=== PATIENT | male | born 1985 | race Hispanic/Latino ===

== ENCOUNTER 2018-05-21 10:00 | Emergency (ER) | payer OTHER ==
[2018-05-21] MEDS ORDERED: ISOVUE-370 76%-LOCM 1 ML ONE (10:31)
[2018-05-21 11:06] LABS: #Basophils 0.1 thou/uL (0.0-0.2); #Eosinphils 0.5 thou/uL (0.0-0.7); #Lymphocytes 1.7 thou/uL (1.20-3.40); #Monocytes 0.4 thou/uL (0.11-0.59); #Neutrophils 5.2 thou/uL (1.40-6.50); %Basophils 0.8 % (0.0-1.0); %Eosinophils 5.9 % (0.0-10.0); %Lymphocytes 21.4 % (21.0-51.0); %Monocytes 5.1 % (0.0-10.0); %Neutrophils 66.8 % (42.0-75.0); Hemoglobin 17.4 g/dL (14.0-18.0); Mean Corpuscular HGB CONC 33.4 g/dL (32.0-36.0); Mean Corpuscular Hemoglobin 29.5 pg (27.0-31.0); Mean Corpuscular Volume 88.3 fL (78.0-98.0); Mean Platelet Volume 6.6 fL (7.4-10.4); Platelet Count 208 thou/uL (130-400); RBC Distribution Width 12.2 % (11.5-14.5); Red Blood Cell (RBC) Count 5.89 mill/uL (4.70-6.10); White Blood Cell (WBC) Count 7.7 thou/uL (4.8-10.8)
[2018-05-21 11:26] LABS: ALT (SGPT) 51 U/L (8-55); AST (SGOT) 29 U/L (5-34); Albumin 4.9 g/dL (3.5-5.0); Alkaline Phosphatase 78 U/L (40-150); Anion Gap 15 mmol/L (10-20); BUN (Urea Nitrogen) 17 mg/dL (8.9-20.6); Bilirubin, Total 0.7 mg/dL (0.2-1.2); Calc. Creatinine Clearance 0 mL/min (70-130); Calcium 9.7 mg/dL (7.8-10.44); Carbon Dioxide 26 mmol/L (22-29); Chloride 102 mmol/L (98-107); Estimated GFR-MDRD 90; Globulin 2.9 g/dL (2.4-3.5); Glucose 86 mg/dL (70-105); Potassium 4.5 mmol/L (3.5-5.1); Protein, Total 7.8 g/dL (6.0-8.3); Sodium 138 mmol/L (136-145)
--- NOTE | 2018-05-21 12:10 | CT ---
CT OF ABDOMEN AND PELVIS PERFORMED WITH IV CONTRAST ENHANCEMENT: Date: 05/21/18 HISTORY: Abdominal pain. History of enlarged liver and spleen. FINDINGS: The lung bases are clear of infiltrates. There are fatty changes of the liver, which measures 21.0 cm in length. The spleen measures 16.4 cm. Pancreas and gallbladder regions are unremarkable. Right and left adrenal glands, and right and left kidneys are normal in size. There is no significant periaortic or mesenteric lymphadenopathy. The appendix is normal in size, retrocecal in location. CT of pelvis was performed with contrast enhancement. There is a moderate amount of stool in the rect um and sigmoid region. No inflammatory process. No pelvic lymphadenopathy or mass. Review of osseous structures show no significant findings. IMPRESSION: Fatty changes of the liver with mild hepatosplenomegaly. No acute findings. POS: [facility]
== END 2018-05-21 12:05 | disposition home or self-care (01) ==
LOC: ERS 10:00
DX: K76.0 Fatty (change of) liver, not elsewhere classified (principal); R16.1 Splenomegaly, not elsewhere classified; F17.220 Nicotine dependence, chewing tobacco, uncomplicated; Z79.899 Other long term (current) drug therapy
CPT/HCPCS: 36415; 74177; 80053; 85025; Q9966